=== PATIENT | male | born 1985 | race Caucasian/White ===

== ENCOUNTER 2017-03-10 16:01 | Emergency (ER) | payer OTHER ==
[2017-03-10] MEDS ORDERED: Ondansetron 4 MG/2 ML SDV IVPUSH ONE (16:23)
[2017-03-10] MEDS ORDERED: Sodium Chloride 0.9% 10 ML Syringe FLUSH PRN (16:23)
[2017-03-10] MEDS ORDERED: Sodium Chloride 0.9% 2.5 ML Syringe FLUSH PRN (16:23)
[2017-03-10] MEDS ORDERED: Dicyclomine 10 MG Cap PO ONE (16:23)
[2017-03-10] MEDS ORDERED: Sodium Chloride 0.9% 1,000 ML IV ONE (16:25)
[2017-03-10] MEDS ORDERED: cloNIDine 0.2 MG/Day Transdermal Patch TRDERM SCH (16:30)
--- NOTE | 2017-03-10 16:32 | EDM.PDOC ---
ED HPI GENERAL MEDICAL PROBLEM - General Chief Complaint: Drug or Alcohol Abuse Stated Complaint: PT IS GOING THJROUGH WITHDRAWLS Time Seen by Provider: 03/10/17 16:01 - History of Present Illness INITIAL COMMENTS - FREE TEXT/NARRATIVE: HISTORY AND PHYSICAL: History of present illness: The patient is a 31-year-old male with a history of chronic back pain for which he was operated on 3 years ago and for which he is prescribed [place] 7.5/325 by his back surgeon in [place] and who presents with complaints of going through withdrawal sx. The patient is not part of a pain management program and is not prescribed Suboxone but he states he buys on the street to "get a boost". He states he uses every couple days and the last time he used the Suboxone was 4 -5 days ago. He last took a [place] 7.5/325mg at 10 AM and he normally will take them twice a day as prescribed. The patient presented to an outside urgent care stating that he was going through withdrawals from the Suboxone and he wanted treatment. He was referred here as they have limited ability to treat him. He describes abdominal cramping diarrhea and he says he will start having nausea and vomiting soon. He feels somewhat tense and anxious and his blood pressure was noted to be elevated at the clinic as well as here. He has no headache no chest pain no shortness of breath no fevers no chills and no extremity complaints. The patient does not smoke cigarettes but chews tobacco used heroin when he was a teenager but has not used any time recently. Patient states he does want to get "over the hump" and he is experienced these symptoms in the past. Review of systems: As per history of present illness and below otherwise all systems reviewed and negative. Past medical history: As per history of present illness and as reviewed below otherwise noncontributory. Surgical history: As per history of present illness and as reviewed below otherwise noncontributory. Social history: No reported history of drug or alcohol abuse. Family history: As per history of present illness and as reviewed below otherwise noncontributory. Physical exam: General: Well-developed well-nourished male was nontoxic-appearing and has injected sclera and who is speaking clearly and easily in ED. Vital signs of a noted by me. He ambulated into the ED without any distress and is not diaphoretic HEENT: Atraumatic, normocephalic, pupils reactive, negative for conjunctival pallor or scleral icterus, mucous membranes moist, throat clear, neck supple, nontender, trachea midline. Lungs: Clear to auscultation, breath sounds equal bilaterally, chest nontender. Heart: S1S2, regular rhythm and tachycardic rate of my evaluation but no overt murmurs are appreciated Abdomen: Soft, nondistended, nontender. NABS Skin: Face is slightly pale he is not diaphoretic Genitourinary: Deferred. Rectal: Deferred. Extremities: Atraumatic, negative for cords or calf pain. Neurovascular unremarkable. Neuro: Awake, alert, oriented. Cranial nerves II through XII unremarkable. Cerebellum unremarkable. Motor and sensory unremarkable throughout. Exam nonfocal. Diagnostics: CBC CMP Therapeutics: IV fluids clonidine patch Jesse knapp I told patient that I would give him a dose of Ativan if he can get a ride home Patient has secured a ride so they have 1 mg of Ativan IV and I agree with him that I would send him home with Jesse hale and a few Ativan for home. He has a clonidine patch in place and is aware that it would stay on for 72 hours. He states he's feeling a little bit better and wants to get home. Advised him that he should do a drug treatment program and we will give him information for that Impression: Suboxone withdrawal Definitive disposition and diagnosis as appropriate pending reevaluation and review of above. Headache Pain Score (Numeric/FACES): 8 - Related Data Allergies Allergy/AdvReac Type Severity Reaction Status Date / Time No Known Allergies Allergy Verified 03/10/17 16:11 Home Meds: Home Meds Hydrocodone/Acetaminophen [Lortab 7.5-325 mg Tablet] 1 tab PO BID PRN 03/10/17 [ History] Past Medical History HEENT History: Reports: Impaired vision Cardiovascular History: Reports: None Respiratory History: Reports: None Gastrointestinal History: Reports: None Genitourinary History: Reports: None Musculoskeletal History: Reports: None Neurological History: Reports: None Psychiatric History: Reports: Anxiety, Depression Endocrine/Metabolic History: Reports: None Hematologic History: Reports: None Immunologic History: Reports: None Oncologic (Cancer) History: Reports: None Dermatologic History: Reports: None - Past Surgical History Head Surgeries/Procedures: Reports: None Respiratory Surgical History: Reports: None GI Surgical History: Reports: None Male Surgical History: Reports: None Endocrine Surgical History: Reports: None Neurological Surgical History: Reports: None Musculoskeletal Surgical History: Reports: Other (see below) Other Musculoskeletal Surgeries/Procedures:: back surgery Dermatological Surgical History: Reports: None Social & Family History - Family History Family Medical History: Noncontributory - Tobacco Use Smoking Status *Q: Current Every Day Smoker Years of Tobacco use: 15 Packs/Tins Daily: 1 - Caffeine Use Caffeine Use: Reports: Soda - Recreational Drug Use Recreational Drug Use: Yes Recreational Drug Type: Reports: Other (see below) Other Recreational Drug Type: Suboxone ED ROS GENERAL - Review of Systems Review Of Systems: ROS reveals no pertinent complaints other than HPI. ED EXAM, GENERAL - Physical Exam Exam: See Below (See dictation) Course - Vital Signs Last Recorded V/S: Last Vital Signs Temp 37.0 C 03/10/17 16:05 Pulse 79 03/10/17 17:00 Resp 18 03/10/17 17:00 BP 132/91 H 03/10/17 17:00 Pulse Ox 98 03/10/17 17:00 - Orders/Labs/Meds Orders: Active Orders 24 hr Category Date Time Status LORazepam [Ativan] Med 03/10/17 17:49 Once 1 mg IVPUSH ONETIME ONE Sodium Chloride 0.9% [Saline Flush] Med 03/10/17 16:23 Active 10 ml FLUSH ASDIRECTED PRN Sodium Chloride 0.9% [Saline Flush] Med 03/10/17 16:23 Active 2.5 ml FLUSH ASDIRECTED PRN cloNIDine [Catapres TTS-2] Med 03/10/17 16:30 Active 0.2 mg TRDERM Q7D Saline Lock Insert [OM.PC] Stat Oth 03/10/17 16:23 Ordered Medication Orders Clonidine HCl (Catapres Tts-2) 0.2 mg TRDERM Q7D MARLYN Last Admin: 03/10/17 17:02 Dose: 0.2 mg Sodium Chloride (Saline Flush) 10 ml FLUSH ASDIRECTED PRN PRN Reason: Keep Vein Open Sodium Chloride (Saline Flush) 2.5 ml FLUSH ASDIRECTED PRN PRN Reason: Keep Vein Open Labs: Laboratory Tests 03/10/17 03/10/17 Range/Units 16:36 16:36 WBC 10.19 (4.0-11.0) K/uL RBC 5.49 (4.50-5.90) M/uL Hgb 16.4 (13.0-17.0) g/dL Hct 46.0 (38.0-50.0) % MCV 83.8 (80.0-98.0) fL MCH 29.9 (27.0-32.0) pg MCHC 35.7 (31.0-37.0) g/dL RDW Std Deviation 38.7 (28.0-62.0) fl RDW Coeff of Adin 13 (11.0-15.0) % Plt Count 228 (150-400) K/uL MPV 10.10 (7.40-12.00) fL Neut % (Auto) 77.2 (48.0-80.0) % Lymph % (Auto) 16.8 (16.0-40.0) % [facility] % (Auto) 4.8 (0.0-15.0) % Eos % (Auto) 0.9 (0.0-7.0) % Baso % (Auto) 0.3 (0.0-1.5) % Neut # (Auto) 7.9 H (1.4-5.7) K/uL Lymph # (Auto) 1.7 (0.6-2.4) K/uL [facility] # (Auto) 0.5 (0.0-0.8) K/uL Eos # (Auto) 0.1 (0.0-0.7) K/uL Baso # (Auto) 0.0 (0.0-0.1) K/uL Nucleated RBC % 0.0 /100WBC Nucleated RBCs # 0 K/uL Sodium 144 (136-146) mmol/L Potassium 4.0 (3.5-5.1) mmol/L Chloride 109 (98-110) mmol/L Carbon Dioxide 24 (21-31) mmol/L BUN 12 (6.0-23.0) mg/dL Creatinine 1.1 (0.6-1.5) mg/dL Est Cr Clr Drug Dosing 104.58 mL/min Estimated GFR (MDRD) > 60.0 ml/min Glucose 101 (60-110) mg/dL Calcium 9.9 (8.8-10.8) mg/dL Total Bilirubin 0.5 (0.1-1.5) mg/dL AST 24 (5-40) IU/L ALT 27 (8-54) IU/L Alkaline Phosphatase 107 (40-150) Total Protein 8.8 H (6.0-8.0) g/dL Albumin 5.2 H (3.5-5.0) g/dL Globulin 3.6 H (2.0-3.5) g/dL Albumin/Globulin Ratio 1.4 (1.3-2.8) Meds: Medications Generic Name Dose Route Start Last Admin Trade Name Freq PRN Reason Stop Dose Admin Clonidine HCl 0.2 mg 03/10/17 16:30 03/10/17 17:02 Catapres Tts-2 TRDERM 0.2 mg Q7D MARLYN Administration Sodium Chloride 10 ml 03/10/17 16:23 Saline Flush FLUSH ASDIRECTED PRN Keep Vein Open Sodium Chloride 2.5 ml 03/10/17 16:23 Saline Flush FLUSH ASDIRECTED PRN Keep Vein Open Discontinued Medications Generic Name Dose Route Start Last Admin Trade Name Freq PRN Reason Stop Dose Admin Dicyclomine HCl 20 mg 03/10/17 16:23 03/10/17 16:39 Bentyl PO 03/10/17 16:24 20 mg ONETIME ONE Administration Sodium Chloride 1,000 mls @ 999 mls/hr 03/10/17 16:25 03/10/17 16:40 Normal Saline IV 03/10/17 17:25 999 mls/hr STAT ONE Administration Ondansetron HCl 4 mg 03/10/17 16:23 03/10/17 16:39 Zofran IVPUSH 03/10/17 16:24 4 mg ONETIME ONE Administration Departure - Departure Time of Disposition: 17:51 Disposition: Home, Self-Care 01 Condition: good Clinical Impression: Drug withdrawal Qualifiers: Substance type: opioid Qualified Code(s): F11.23 - Opioid dependence with withdrawal Referrals: PCP,None [Primary Care Provider] - [facility] [Outside] Forms: ED Department Discharge Additional Instructions: The following information is given to patients seen in the emergency department who are being discharged to home. This information is to outline your options for follow-up care. We provide all patients seen in our emergency department with a follow-up referral. The need for follow-up, as well as the timing and circumstances, are variable depending upon the specifics of your emergency department visit. If you don't have a primary care physician on staff, we will provide you with a referral. We always advise you to contact your personal physician following an emergency department visit to inform them of the circumstance of the visit and for follow-up with them and/or the need for any referrals to a consulting specialist. The emergency department will also refer you to a specialist when appropriate. This referral assures that you have the opportunity for followup care with a specialist. All of these measure are taken in an effort to provide you with optimal care, which includes your followup. Under all circumstances we always encourage you to contact your private physician who remains a resource for coordinating your care. When calling for followup care, please make the office aware that this follow-up is from your recent emergency room visit. If for any reason you are refused follow-up, please contact the [facility] emergency department at and ask to speak to the emergency department charge nurse. [facility] Primary care- Internal Medicine [place] [address] Please connect with a clinic physician as well as outpatient counseling to help you with your addiction issues. Please leave the clonidine patch on it was placed in the ED for the next 72 hours and then he can remove it. Use prescribe medications as needed and directed. Return to ER as needed and as discussed. - My Orders Last 24 Hours: My Active Orders 03/10/17 16:23 Sodium Chloride 0.9% [Saline Flush] 10 ml FLUSH ASDIRECTED PRN Sodium Chloride 0.9% [Saline Flush] 2.5 ml FLUSH ASDIRECTED PRN Saline Lock Insert [OM.PC] Stat 03/10/17 16:30 cloNIDine [Catapres TTS-2] 0.2 mg TRDERM Q7D 03/10/17 17:49 LORazepam [Ativan] 1 mg IVPUSH ONETIME ONE - Assessment/Plan Last 24 Hours: My Active Orders 03/10/17 16:23 Sodium Chloride 0.9% [Saline Flush] 10 ml FLUSH ASDIRECTED PRN Sodium Chloride 0.9% [Saline Flush] 2.5 ml FLUSH ASDIRECTED PRN Saline Lock Insert [OM.PC] Stat 03/10/17 16:30 cloNIDine [Catapres TTS-2] 0.2 mg TRDERM Q7D 03/10/17 17:49 LORazepam [Ativan] 1 mg IVPUSH ONETIME ONE
[2017-03-10 17:04] LABS: CHLORIDE,CL 109 mmol/L (98-110); SODIUM,NA 144 mmol/L (136-146)
[2017-03-10] MEDS ORDERED: LORazepam 2 MG/ML MDV IVPUSH ONE (17:49)
[2017-03-10 18:46] VITALS: BP 178/95
== END 2017-03-10 18:44 | disposition home or self-care (01) ==
LOC: MW.ED 16:01
DX: F11.23 Opioid dependence with withdrawal (principal); F41.8 Other specified anxiety disorders; F17.210 Nicotine dependence, cigarettes, uncomplicated; Z98.890 Other specified postprocedural states
CPT/HCPCS: 80053; 85025; 96361; 96374; 96375; 99284; A9270; J2060; J2405; J7040